=== PATIENT | male | born 1995 | race Hispanic/Latino ===

== ENCOUNTER 2020-11-23 14:23 | Emergency (ER) | payer OTHER, SELFPAY ==
--- NOTE | ~2020-11-23 | XR_ITS ---
XR finger 2nd LT min 2V DATE: 11/23/2020 15:01 INDICATION: Smashing injury 5 days ago. Pain. TECHNIQUE: 3 views of left second digit COMPARISON: None FINDINGS: No fracture or dislocation, periosteal reaction or bone destruction, radiopaque soft tissue foreign body or subcutaneous emphysema. IMPRESSION: No significant bony abnormality Reviewed, dictated and finalized at location A. 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
--- NOTE | 2020-11-23 14:42 | ED.UPPEXIN ---
HPI - Extremity Injury (Upper) General Chief Complaint: Extremity Injury, Upper Stated Complaint: 2nd right finger infection Source: patient, RN notes reviewed and parts order and stock clerk Mode of arrival: ambulatory Limitations: no limitations History of Present Illness HPI narrative: 25-year-old male presents to [facility] with complaints of pain to the tip of the left index finger. States that he smashed it approximately 4 days ago. Unknown last Tdap. Used a contract negotiation specialist Related Data Home Medications Medication Instructions Recorded Confirmed No Home Medications 11/23/20 11/23/20 Allergies Allergy/AdvReac Type Severity Reaction Status Date / Time No Known Allergies Allergy Verified 11/23/20 14:50 Review of Systems Review of Systems: Narrative: CONSTITUTIONAL: Denies fever, chills, or sweats. EYES: Denies visual changes, redness, or discharge. CARDIOVASCULAR: Denies chest pain, palpitations, or edema. RESPIRATORY: Denies cough or dyspnea. GASTROINTESTINAL: Denies abdominal pain, nausea, vomiting, or diarrhea. GENITOURINARY: Denies dysuria or hematuria. SKIN: Denies rash or itching. Pain and bruising noted to the left index finger, nailbed. Pain to the DIP joint and distal MUSCULOSKELETAL: Denies back pain, joint pain, or myalgia. NEUROLOGIC: Denies headache, numbness, or weakness. PSYCHIATRIC: Denies anxiety or depression. All other systems reviewed are negative, except as documented in HPI. PMFSH Social History Social History Gender identity (if verbalized by the patient): Male Comments At the time of my signature, I reviewed and agree with the nursing past medical, surgical, social, and family history. There is no relevant family history pertinent to the patient complaint. Exam Narrative: Exam Narrative: GENERAL: This is a well-nourished, well-developed patient, in mild pain HEAD: normocephalic, atraumatic. EYES: PERRL. Sclera clear/white. Vision is grossly intact. NECK: Neck supple, non-tender without lymphadenopathy, masses or thyromegaly. CARDIOVASCULAR: Regular rate and rhythm without murmurs, gallops, or rubs. RESPIRATORY: Clear to auscultation. Breath sounds equal bilaterally. No wheezes, rales, or rhonchi. GASTROINTESTINAL: Abdomen soft, non-tender, nondistended. Bowel sounds are active. No hepato-splenomegaly, or palpable masses. No guarding. SKIN: warm, intact with no suspicious lesions or rash, good texture and turgor. NEURO: awake, alert, and oriented to person, place and time. There were no obvious focal neurologic abnormalities. EXTREMITIES: No clubbing, cyanosis, or edema. No joint tenderness, effusion, or edema noted. BACK: Nontender without deformity or crepitance. No flank tenderness. Extrem: Hand/finger images: 1. Bruising noted with mild swelling. Subungual hematoma. Skin is intact. Decreased range of motion at the DIP joint due to swelling and pain. Course Vital Signs Vital signs: Vital Signs Temperature 97.1 F L 11/23/20 14:47 Pulse Rate 86 11/23/20 14:47 Respiratory Rate 16 11/23/20 14:47 Blood Pressure 164/79 H 11/23/20 14:47 Pulse Oximetry 99 11/23/20 14:47 Temperature 97.1 F L 11/23/20 14:47 Pulse Rate 74 11/23/20 15:43 Respiratory Rate 16 11/23/20 15:43 Blood Pressure 147/83 H 11/23/20 15:43 Pulse Oximetry 100 11/23/20 15:43 Reviewed. Patient in pain possible reason for elevation of blood pressure. Instructed patient importance of following up with her primary care provider Procedures Nail Trephination Nail Trephination #1: Nail Trephination Date: 11/23/20 Nail Trephination Time: 15:05 Time out: Yes Location (finger): left and index Sterile prep: chlorhexidine and other (saline) Method of drainage: nail cautery Procedure successful: Yes Patient tolerated procedure: well Complications: bleeding and pain Critical Care Time Critical Care Time Critical Care Time: No D
[2020-11-23 14:47] VITALS: BP 164/79; PULSE 86; RESP 16; TEMP 36.2; O2SAT 99
[2020-11-23] MEDS: TETANUS,DIPHTHERIA,AC PERTUSSIS ADULT (0.5 ML) BOOSTRIX IM (15:00)
--- NOTE | 2020-11-23 15:23 | PC.NURSE ---
Pt was given 1000mg ordered tylenol dose 15:16
--- NOTE | 2020-11-23 15:30 | PC.NURSE ---
1506: board of directors called again, x-ray results given to patient. Plan of care explained to patient via provider. Pt verbalized understanding. 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
[2020-11-23 15:43] VITALS: BP 147/83; PULSE 74; RESP 16; O2SAT 100
== END 2020-11-23 15:43 | disposition home or self-care (01) ==
PROVIDERS: Emergency Provider Nurse Practitioner
DX: S60.122A Contusion of left index finger with damage to nail, initial encounter (principal); X58.XXXA Exposure to other specified factors, initial encounter; Z23 Encounter for immunization
CPT/HCPCS: 11740; 73140; 90471; 90715; 99203; A9270; G0463